=== PATIENT | male | born 1955 | race Caucasian/White ===

== ENCOUNTER 2017-06-01 17:29 | Observation (INO) | payer OTHER ==
[~2017-06-01] VITALS: Ht 182.9 cm; Wt 89.2 kg
--- NOTE | ~2017-06-01 | HEMODYNAMI ---
PATIENT:MARIS BRIDGES MEDICAL RECORD: [id number] : 57 [facility] [place] [facility] AD[facility] DATE: 06/01/17 Generatedon:06/02/201716:23 Patient name: MARIS BRIDGES Patient #: [id number] SSN: : 1955 Date of study: 06/02/2017 Page: Of Hemodynamic Procedure Report Patient Data Patient Demographics Procedure consent was obtained First Name: MARIS Gender: Male Last Name: YULIANA : 1955 Patient #: [id number] Age: 61 year(s) Race: Unknown Additional ID: [id number] Contact details [address]: [address] [place] [address] [employer] State: [place] City: [place] Zip code: [address] Past Medical History Allergies Allergen Reaction Date Comments Reported Other allergy 06/02/2017 Amoxicillin Admission Admission Data Admission Date: 06/01/2017 Admission Time: 19:28 [facility] Results Lab Result Date: 06/02/2017 Lab Result Time: 0:00 Biochemistry Name Units Result Min Max BUN mg/dl 29 --(----)-* 7 18 Creatinine mg/dl 1.2 --(---*)-- 0.6 1.3 CBC Name Units Result Min Max Hemoglobin g/dl 16.8 --(---*)-- 13.5 17.5 Procedure Procedure Types Cath Procedure Diagnostic Procedure C [facility] w/Coronaries Miscellaneous Procedures Moderate Sedation up to 15 minutes Procedure Description Procedure Date Procedure Date: 06/02/2017 Procedure Start Time: 16:05 Procedure End Time: 16:21 Procedure Staff Name Function Vidal Aviles MD Performing Physician Marija Benavides RT Scrub Gabrielle Silver RT Monitor Oscar Batres RN Nurse Procedure Data Cath Procedure Fluoroscopy Diagnostic fluoroscopy Total fluoroscopy Time: 1.9 time: 1.9 min min Diagnostic fluoroscopy Total fluoroscopy dose: 967 dose: 967 mGy mGy Contrast Material Contrast Material Type Amount (ml) Isovue 300 89 Entry Location Entry Primary Successful Side Size Upsize Upsize Entry Closure Spann ccessful Closure Location (Fr) 1 (Fr) 2 (Fr) Remarks Device Remarks Radial Right 6 Fr Mechanical TR Band artery Short Compression Estimated blood loss: 10 ml Diagnostic catheters Device Type Used For End Catheter Placement Terumo 5Fr Keron 110cm Procedure catheter Procedure Complications No complications Procedure Medications Medication Administration Route Dosage Oxygen NC 2 l/min Lidocaine 2% added to field 20 Heparin Flush Bag added to field 2 bags (1000units/500ml NS) 0.9% NaCl I.V. 100 ml/hr Versed I.V. 0.5 mg Fentanyl I.V. 25 mcg Radial Cocktail I.A. 1 syringe (Verapomil 2mg/Nitro 400mcg/Heparin 1500units) Versed I.V. 0.5 mg Fentanyl I.V. 25 mcg Hemodynamics Rest Heart Rate: 83 (bpm) Pressure Samples Time Site Value (mmHg) Purpose Heart Use Rate(bpm) 16:08 LV 150/-11,11 Snapshot 83 16:09 AO 121/80(98) Pullback 85 16:09 LV 139/-8,9 Pullback 85 Gradients Valve Time Site 1 Site 2 Mean SEP/DFP Peak To Heart Use (mmHg) (sec/min) Peak Rate (mmHg) (bpm) Aortic 16:09 LV AO 15 5 18 85 139/-8,9 121/80(98) Calculations Valve P-P Mean Valve Index Valve Source Name Gradient Area Flow (cm2) Aortic 18 15 18 15 Snapshots Pre Cath Intra NCS Post Cath Vital Signs Time Heart Resp SPO2 etCO2 NIBP (mmHg) Rhythm Pain Sedation Rate (ipm) (%) (mmHg) Status Level (bpm) 16:02:22 69 16 95 1.5 125/90(101) NSR 0 (11) 10(A) , No pain 16:06:29 73 15 96 10.6 134/85(100) NSR 0 (11) 10(A) , No pain 16:10:40 86 14 95 31 114/75(95) NSR 0 (11) 9(A) , No pain 16:14:44 81 16 94 30.2 117/78(94) NSR 0 (11) 9(A) , No pain 16:18:50 77 16 94 1.5 118/77(94) NSR 0 (11) 10(A) , No pain Medications Time Medication Route Dose Verified Delivered Reason Notes Effectiveness by by 16:00:40 Oxygen NC 2 l/min Vidal Buffie used for Stefan Batres RN procedure 16:00:52 Lidocaine 2% added 20ml Vidal Vidal for local to vial Stefan Aviles MD anesthetic field 16:01:03 Heparin Flush added 2 bags Vidal Vidal used for Bag to Stefan Aviles MD procedure (1000units/500ml field NS) 16:01:12 0.9% NaCl I.V. 100 Vidal Buffie Per ml/hr Stefan Batres RN physician 16:04:22 Versed I.V. 0.5 mg Vidal Buffie for sedation Stefan Batres RN 16:04:29 Fentanyl I.V. 25 mcg Vidal Buffie for sedation Stefan Batres RN 16:08:27 Radial Cocktail I.A. 1 Vidal Vidal for (Verapomil syringe Stefan Aviles MD vasodilation 2mg/Nitro 400mcg/Heparin 1500units) 16:08:55 Versed I.V. 0.5 mg Vidal Buffie for sedation Stefan Batres RN 16:09:01 Fentanyl I.V. 25 mcg Vidal Buffie for sedation Stefan Batres RN Procedure Log Time Note 15:35:06 Lab Result : BUN 29 mg/dl 15:35:06 Lab Result : Hemoglobin 16.8 g/dl 15:35:06 Lab Result : Creatinine 1.2 mg/dl 15:37:14 Diagnostic Cath status Elective 15:37:16 Marija Benavides RT(R) sent for patient. Start room use. 15:37:17 Time tracking: Regular hours 15:37:22 Plan of Care:Hemodynamics will remain stable., Cardiac rhythm will remain stable., Comfort level will be maintained., Respiratory function will remain adequate., Patient/ family verbilizes understanding of procedure., Procedure tolerated without complication., Recovers from procedure without complications.. 15:47:33 Patient received from Med II to CCL 2 Alert and oriented. Tansferred to table in Supine position. 15:47:35 Warm blankets applied, and connie hugger turned on for patient comfort. 15:47:35 Correct patient and procedure confirmed by team. 15:47:37 Signed procedure consent form obtained from patient. 15:47:47 H&P Date Dictated: 06/01/2017 Within 30 days and on chart.. 15:47:49 Pre-procedure instructions explained to patient. 15:47:51 Family in waiting room. 15:47:55 Patient NPO since Midnight. 15:48:11 Patient allergic to Other allergyAmoxicillin 15:48:21 Is the patient allergic to Iodine/contrast media? No. 15:48:25 Is patient on blood thinner?No 15:48:48 ACC The patient was administered the following blood thiners within the last 24 hours: ACCAspirin 16:00:40 Oxygen 2 l/min NC was administered by Oscar Batres RN; used for procedure; 16:00:52 Lidocaine 2% 20ml vial added to field was administered by Vidal Aviles MD; for local anesthetic; 16:01:03 Heparin Flush Bag (1000units/500ml NS) 2 bags added to field was administered by Vidal Aviles MD; used for procedure; 16:01:12 0.9% NaCl 100 ml/hr I.V. was administered by Oscar Batres RN; Per physician; 16:01:21 Vital chart was started 16:01:47 Patient diabetic? No. 16:01:52 Previous problem with sedation/anesthesia? No ? 16:01:54 Snore? Yes 16:01:56 Sleep apnea? No 16:02:10 Patient pain scale 2/10 ?. 16:02:21 IV patent on arrival in left forearm with 0.9% NaCl at [facility]. 16:02:33 Lab results completed and on chart. 16:02:38 Right Radial & Right Groin area was prepped with chlora-prep and draped in sterile fashion 16:02:46 Alarms reviewed by R. N. 16:02:46 Sharps counted by scrub and verified by R.N. 16:02:48 Physician paged 16:02:49 Physician arrived 16:02:49 --------ALL STOP TIME OUT------ 16:02:50 Final Timeout: patient, procedure, and site verified with staff and physician. All members of the team are in agreement. 16:02:51 Right Radial & Right Groin site verified by team. 16:02:56 Sedation plan: IV Moderate Sedation Versed, Fentanyl 16:03:52 Use device set Radial Dx 16:03:53 Acist Syringe opened to sterile field. 16:03:53 Medline Cath Pack opened to sterile field. 16:03:54 Bag Decanter opened to sterile field. 16:03:54 Terumo 6Fr Slender Glidesheath opened to sterile field. 16:03:55 St Graham 260cm J .035 wire opened to sterile field. 16:03:55 Acist Hand Control opened to sterile field. 16:03:56 Acist Manifold opened to sterile field. 16:03:56 Tegaderm 4 x 4 opened to sterile field. 16:03:56 MBrace Wrist Support opened to sterile field. 16:04:22 Versed 0.5 mg I.V. was administered by Oscar Batres RN; for sedation; 16:04:29 Fentanyl 25 mcg I.V. was administered by Oscar Batres RN; for sedation; 16:05:20 Procedure started. 16:05:20 Full Disclosure recording started 16:05:21 Zero performed for pressure channel P1 16:05:56 Local anesthetic to right radial artery with Lidocaine 2% by Vidal Aviles MD.INITIAL ACCESS ONLY 16:06:08 A 6 Fr Short sheath was inserted into the Right Radial artery 16:06:13 J wire advanced. 16:08:01 A Terumo 5Fr Keron 110cm catheter was advanced over the wire and used for Procedure. 16:08:05 LV angiography performed. 16:08:27 Radial Cocktail (Verapomil 2mg/Nitro 400mcg/Heparin 1500units) 1 syringe I.A. was administered by Vidal Aviles MD; for vasodilation; 16:08:55 Versed 0.5 mg I.V. was administered by Oscar Batres RN; for sedation; 16:09:01 Fentanyl 25 mcg I.V. was administered by Oscar Batres RN; for sedation; 16:09:22 EF : 55 % 16::57 RCA angiography performed. 16:10:35 LCA angiography performed. 16:18:54 Catheter removed. 16:19:07 Terumo TR Band Standard opened to sterile field. 16:19:30 Sheath removed intact; hemostasis achieved with Mechanical Compression to the Right Radial artery. 16:19:33 Procedure ended.(Physican Out) 16:19:46 Fluoroscopy time 01.90 minutes. 16:19:53 Fluoroscopy dose: 967 mGy 16:19:53 Flurop Dose total: 967 16:20:00 Contrast amount:Isovue 300 89ml. 16:20:04 Sharps counted by scrub and verified by R.N. 16:20:08 TR band inflated with 10cc of air. 16:20:11 Insertion/operative site no bleeding no hematoma. 16:20:14 Post Procedure Pulses reassessed and unchanged 16:20:19 Post procedure rhythm: unchanged. 16:20:23 Estimated blood loss: 10 ml 16:20:24 Post procedure instruction explained to patient.Patient verbalizes understanding. 16:20:37 Procedure and supply charges have been captured, reviewed, submitted and are correct. 16:21:02 Procedure Complication : No complications 16:21:04 Vital chart was stopped 16:21:05 See physician's report for complete and final results. 16:21:08 Report given to Med/Surg. 16:21:12 Patient transfered to [facility] with Bed. 16:21:14 Procedure ended. 16:21:14 Full Disclosure recording stopped 16:21:18 End room use (Document Last) Device Usage Item Name Manufacture Quantity Catalog Hospital Part Current Minimal Lot# / Number Charge Number Stock Stock Serial# Code Acist Acist 1 [id number] [id number] [id number] [id number] 20 Syringe Medical [employer] Inc Medline Cardinal 1 [id number] 75749 537894 5 Cath Pack Health Bag Microtek 1 2001S 097807 63549 654904 5 [employer] Terumo 6Fr Terumo 1 [id number] 341828 945807 266122 [address] Graham 1 022551 241996 369943 588790 30 260cm J .035 wire Acist Hand Acist 1 73356 986455 528526 100533 5 Control Medical Systems Inc Acist Acist 1 96489 986388 931448 537143 5 Manifold Medical Systems Inc Tegaderm 4 3M 1 1626W 996517 226009 196050 5 x 4 MBrace Advanced 1 140-0250-00 550244 88227 069042 5 Wrist Vascular Support Dynamics Terumo 5Fr Terumo 1 64-6826 672088 839689 260919 5 Keron 110cm catheter Terumo TR Terumo 1 [id number] 970064 581040 348991 40 Band Standard Signature Audit [place] Stage Time Signature Unsigned Intra-Procedure 06/02/2017 Gabrielle Silver 4:23:43 PM RT(R) Signatures Monitor : Gabrielle Silver Signature : RT Date : Time : [place] [address] [place] [address]
[2017-06-01 17:53] LABS: BASOPHILS 0.1 % (0-2); EOSINOPHILS 0.2 % (0-7); HEMATOCRIT 50.2 % (42.0-54.0); HEMOGLOBIN 16.8 g/dL (13.5-17.5); IMMATURE GRANULOCYTES 0.3 % (0-5); LYMPHOCYTES 7.1 % (15-50); MCH 30.4 pg (26.0-34.0); MCHC 33.5 g/dL (31.0-37.0); MCV 90.8 fL (80.0-100.0); MEAN PLATELET VOLUME 10.8 fL (7.4-10.4); MONOCYTES 8.5 % (2-11); NEUTROPHILS 83.8 % (40-80); PLATELET COUNT 144 10x3/uL (130-400); RBC 5.53 10x6/uL (4.20-6.10); RDW 13.5 % (11.5-14.5); WBC 9.7 10x3/uL (4.8-10.8)
[2017-06-01 18:04] LABS: ALBUMIN 3.7 g/dL (3.4-5.0); ALKALINE PHOSPHATASE 87 U/L (46-116); ALT (SGPT) 39 U/L (10-68); BILIRUBIN - TOTAL 0.92 mg/dL (0.2-1.3); CALC OSMOLALITY 287 mosm/kg (275-300); CALCIUM 8.2 mg/dL (8.5-10.1); CARBON DIOXIDE 28.4 mmol/L (21.0-32.0); CHLORIDE - SERUM 103 mmol/L (98-107); CREATININE - SERUM 1.2 mg/dL (0.6-1.3); GLUCOSE 108 mg/dL (74-106); POTASSIUM - SERUM 3.6 mmol/L (3.5-5.1); PROTEIN - SERUM 7.4 g/dL (6.4-8.2); SODIUM 141 mmol/L (136-145); UREA NITROGEN 29 mg/dL (7-18); eGFR NON AFRICAN AMERICAN 66 mL/min (90-120)
[2017-06-01 18:15] LABS: CKMB 0.7 U/L (0.0-3.6); CREATINE KINASE 133 UL (21-232); TROPONIN-I < 0.017 ng/mL (0.000-0.060)
[2017-06-01 18:38] LABS: MAGNESIUM - SERUM 2.2 mg/dL (1.8-2.4); T4 THYROXINE 7.9 ug/dL (4.7-13.3); THYROID STIMULATING HORMONE 0.83 uIU/mL (0.36-3.74)
[2017-06-01 18:51] LABS: APPEARANCE CLEAR (CLEAR); BILIRUBIN NEGATIVE (NEGATIVE); COLOR YELLOW (YELLOW); GLUCOSE NEGATIVE (NEGATIVE); KETONE NEGATIVE (NEGATIVE); NITRITE NEGATIVE (NEGATIVE); PH 6.5 (5.0-6.0); PROTEIN NEGATIVE (NEGATIVE); SPECIFIC GRAVITY 1.015 (1.005-1.020); UROBILINOGEN NORMAL (NORMAL)
[2017-06-01 18:56] LABS: UDS - AMPHET NEGATIVE QUAL (NEGATIVE); UDS - BARB NEGATIVE QUAL (NEGATIVE); UDS - BENZO NEGATIVE QUAL (NEGATIVE); UDS - COCAINE NEGATIVE QUAL (NEGATIVE); UDS - OPIATE NEGATIVE QUAL (NEGATIVE); UDS - PCP NEGATIVE QUAL (NEGATIVE); UDS - THC POSITIVE QUAL (NEGATIVE)
[2017-06-01 20:00] VITALS: BP 121/78
--- NOTE | 2017-06-01 20:30 | NUR ---
PT ARRIVES VIA STRETCHER ACCOMPANIED BY A AND P TECHNICIAN. PT IS ALERT/ORIENTED X4. SPEAKS IN A SOFT WHISPER. UPON NEURO ASSESSMENT, PT RELATES EXTREMITRIES X4 FEEL "HEAVY". HOWEVER, EQUAL STRENGTH NOTED BILAT. FOLLOWS COMMANDS. TONGUE MIDLINE. SWALLOWING WITHOUT COUGHING OR ASPIRATION NOTED WITH SMALL SIPS OF WATER. PUPILS PERRLA. SISTER IN AT THE BEDSIDE. STATES SPOUSE WILL BE UP HERE TO STAY THE NIGHT. PT DOES C/O HEADACHE. REFUSES TYLENOL. WILL CONT TO MONITOR.
[2017-06-01 21:05] VITALS: BP 121/78; Ht 182.9 cm; Wt 89.2 kg
[2017-06-02] VITALS: BP 104/69
--- NOTE | 2017-06-02 00:15 | NUR ---
NO CHANGES NOTED IN NEURO ASSESSMENT. PT REMAINS WITHOUT NEURO DEFICITS NOTED. FAMILY IN AT BEDSIDE. WILL CONT TO MONITOR.
--- NOTE | 2017-06-02 02:06 | NUR ---
PT RESTING SOUNDLY WITHOUT C/O OR DISTRESS NOTED. NO NEEDS VOICED. WILL CONT TO MONITOR.
[2017-06-02] MEDS ORDERED: HYDROCORTISONE30 G9 TOPICAL (02:10)
[2017-06-02] MEDS ORDERED: LISINOPRIL5 MG PO (02:10)
[2017-06-02] MEDS ORDERED: VIAGRA100 MG PO (02:11)
[2017-06-02] MEDS ORDERED: ZOCOR20 MG PO (02:11)
[2017-06-02 04:00] VITALS: BP 114/69
--- NOTE | 2017-06-02 07:30 | NUR ---
RECEIVED PT IN BED AAOX4 RESP UNLABORED C/O GAMBOA 02/27 EXPLAINED WOULD HAVE TO GET A ORDER NO OTHER NEEDS VOICED AT THIS TIME
[2017-06-02 08:09] LABS: BASOPHILS 0.3 % (0-2); EOSINOPHILS 2.6 % (0-7); HEMOGLOBIN 15.2 g/dL (13.5-17.5); IMMATURE GRANULOCYTES 0.3 % (0-5); MCH 30.1 pg (26.0-34.0); MCV 91.1 fL (80.0-100.0); MEAN PLATELET VOLUME 10.8 fL (7.4-10.4); MONOCYTES 11.6 % (2-11); NEUTROPHILS 72.2 % (40-80); PLATELET COUNT 142 10x3/uL (130-400); RBC 5.05 10x6/uL (4.20-6.10); RDW 13.7 % (11.5-14.5); WBC 7.4 10x3/uL (4.8-10.8)
[2017-06-02 08:17] LABS: CALC OSMOLALITY 282 mosm/kg (275-300); CALCIUM 8.1 mg/dL (8.5-10.1); CARBON DIOXIDE 25.8 mmol/L (21.0-32.0); CHLORIDE - SERUM 106 mmol/L (98-107); GLUCOSE 101 mg/dL (74-106); SODIUM 140 mmol/L (136-145); UREA NITROGEN 24 mg/dL (7-18); eGFR NON AFRICAN AMERICAN 81 mL/min (90-120)
[2017-06-02 08:48] VITALS: BP 116/76
[2017-06-02 12:57] VITALS: BP 117/84
--- NOTE | 2017-06-02 20:30 | NUR ---
4 CC AIR REMOVED FROM TR BAND TO RIGHT WRIST. PT C/O THAT THE TR BAND IS UNCOMFORTABLE. NO BLEEDING NOTED. WILL CONT TO MONITOR.
--- NOTE | 2017-06-02 21:05 | NUR ---
ALL AIR REMOVED FROM TR BAND AND REMOVED THE BAND AT THIS TIME. NO BLEEDING OR HEMATOMA NOTED TO THE SITE. SMALL FOLDED 2X2 PLACED AND SECURED WITH OPSITE. WILL CONT TO MONITOR THE SITE.
[2017-06-02 22:46] VITALS: BP 133/85
--- NOTE | 2017-06-03 01:54 | NUR ---
PT RESTING WELL WITHOUT C/O OR DISTRESS NOTED. NO NEEDS VOICED. WILL CONT TO MONITOR.
[2017-06-03 05:05] VITALS: BP 123/79
--- NOTE | 2017-06-03 07:31 | NUR ---
RECEIVED PT IN BED EYES CLOSED RESP UNLABORED NAD NOTED
[2017-06-03 08:34] VITALS: BP 111/79
[2017-06-03] MEDS ORDERED: ISOSORBIDE MONO30 M1 PO (09:14)
--- NOTE | 2017-06-03 12:00 | NUR ---
REVIEWED DISCHARGE INSTRUCTIONS PT STATES UNDERSTANDING COOPY GIVEN DCD SALINE LOCK TO LAC WITH CATHETER TIP INTACT SITE FREE OF REDNESS AND EDEMA PT DISCHARGED HOME LEFT UNIT IN STABLE CONDITION VIA W/C WITH ALL PERSONAL BELONGINGS
[2017-06-03 12:38] VITALS: BP 124/81
[2017-06-04 10:16] LABS: HEPATITIS C ANTIBODY <0.1 (0.0-0.9)
[2017-06-09] MEDS ORDERED: ASPIRIN EC81 M1 PO (10:34)
== END 2017-06-03 15:07 | disposition home or self-care (01) ==
LOC: D.ER 17:29 → D.M2 19:28 → OBSVTIME 19:28 → D.M2 19:28 → D.SDCHOLD 06-02 16:29 → D.M2 06-02 16:35 → D.SDCHOLD 06-03 14:46 → D.M2 06-03 14:48
PROVIDERS: Emergency Medicine; Internal Medicine Cardiovascular Disease; ADMIT Internal Medicine Cardiovascular Disease
DX: I25.110 Atherosclerotic heart disease of native coronary artery with unstable angina pectoris (principal); I10 Essential (primary) hypertension; E78.5 Hyperlipidemia, unspecified

== ENCOUNTER 2017-06-10 04:50 | Inpatient (IN) | payer OTHER ==
--- NOTE | 2017-06-07 10:37 | HP ---
PATIENT: MARIS BRIDGES MEDICAL RECORD: [id number] ACCOUNT: [id number] LOCATION:[facility] : 57 ADMISSION DATE: 06/10/17 HISTORY AND PHYSICAL EXAMINATION MARIS Aldridge (61yo, M) ID# [id number]. Date/Time06/04/2017 01:55POFHU48/28/195Service Dept.NPP_[facility] ClinicProviderEDARVIND BROWN MDInsuranceMed Primary: [employer] Insurance # : [id number] Policy/Group # : [id number] Employer Name : [employer] Prescription: [employer] - This member could not be found in the payer's files. Please verify coverage and all member demographic information. Chief Complaint Coronary artery disease eval/schedule for CABG Patient's Care Team Primary Care Provider: LILIANA ROSALES MD: [id number] [facility] [facility] [address], [place] [address], , Weigher Packing: SARY AUGUSTE MD Vitals BP:130/80 sitting R arm 06/04/2017 01:51 pmBP Cuff Size:adult 06/04/2017 01:51 pmHR:52,reg 06/04/2017 01:51 pmHt:6 ft 06/04/2017 01:51 pmWt:195 lbs 06/04/2017 01:52 pmNotes:one mild episode of pain intermittently this am. Two weeks ago beganw L shoulder pain, substernal chest pain, some SOB. Went to [employer] and felt very fatigued beyond his norm.Came home early from [place]. Went to the park with his kids and had a syncopal episode.06/04/2017 01:53 pmBMI:26.4 06/04/2017 01:52 pmAllergies Reviewed Allergies AMOXICILLINMedications Reviewed Medications aspirin 81 mg chewable tablet Chew 1 tablet(s) every day by oral route.06/04/17 enteredKathy Wilsonfluocinonide 0.05 % topical solution IBETH TO SCALP BID FOR 2 WEEKS THEN ONLY 2 TO 3 TIMES A WEEK06/03/17 filledsurescriptshydrocortisone 2.5 % topical cream IEBTH TO SCALY AREAS BID FOR 2 WEEKS THEN DECREASE TO 3 TIMES WEEKLY TO FACE ONLY05/29/17 filledsurescriptsisosorbide mononitrate ER 30 mg tablet,extended release 24 hr TK 1 T PO QD06/03/17 filledsurescriptslisinopril 5 mg ekkyyc61/09/17 filledsurescriptssimvastatin 20 mg tablet TK 1 T PO D107/29/16 filledsurescriptsViagra 100 mg tablet TK 1 T PO ONE TIME D107/29/16 filledsurescriptsProblems Reviewed Problems Coronary atherosclerosis - Onset: 06/03/2017 Family History Discussed Family History Mother- History of cardiovascular disease - grandparentUnspecified Relation- Cerebrovascular accident - grandparentFather- Kidney diseaseSocial History Discussed Social History Cardiology Family history of heart disease?: Y Smoking Status: Never smoker HISTORY AND PHYSICAL [id number] MARIS BRIDGES High Cholesterol: Y High blood pressure: Y Exercise level: Moderate Alcohol intake: Moderate Occupation: [employer] Marital status: Surgical History Reviewed Surgical History Cervical laminoplsty 2/> seg - 07/21/1998 - c5-c7 diskectomy and fusion Appendectomy - 07/21/1968 Past Medical History Discussed Past Medical History Hyperlipidemia: Y Hyp ertension: Y Documents for Discussion N/A Screening None recorded. HPI Coronary Artery Disease F/U Reported by patient. Severity: symptoms are worsening; chest discomfort with household activities/yard work Context: non-smoker; using Viagra, Levitra, or Cialis Associated Symptoms: chest pain with exertion; nausea w onset of fatigue last weekend ROS Patient reports chest pain on exertion, arm pain on exertion, and shortness of breath when walking but reports no shortness of breath when lying down, no palpitations, and no known heart murmur. He reports no fever, no night sweats, no significant weight gain, no significant weight loss, and no exercise intolerance. He reports no dry eyes, no irritation, and no vision change. He report s no difficulty hearing and no ear pain. He reports no frequent nosebleeds and no nose/sinus problems. He reports no sore throat, no bleeding gums, no snoring, no dry mouth, no mouth ulcers, no oral abnormalities, and no teeth problems. He reports no jugul a r vein distension and no swollen glands. He reports no cough, no wheezing, no shortness of breath, and no coughing up blood. He reports no abdominal pain, no vomiting, normal appetite, no diarrhea, not vomiting blood, no nausea, and no constipation. He re p orts no incontinence, no difficulty urinating, no hematuria, and no increased frequency. He reports no muscle aches, no muscle weakness, no arthralgias/joint pain, no back pain, and no swelling in the extremities. He reports no abnormal mole, no jaundice, and no rashes. He reports no loss of consciousness, no weakness, no numbness, no seizures, no dizziness, and no headaches. He reports no depression, no sleep disturbances, feeling safe in relationship, and no alcohol abuse. He reports no fatigue. He repor ts no swollen glands and no bruising. He reports no runny nose, no sinus pressure, no itching, no hives, and no frequent sneezing. ROS as noted in the HPI Physical Exam Patient is a 61-year-old male. Constitutional: General Appearance well nourished and developed and healthy-appearing. Level of Distress NAD. Ambulation ambulating normally. HISTORY AND PHYSICAL [id number] MARIS BRIDGES Cardiovascular: Apical Impulse not displaced or no thrill. Heart Auscultation normal s1 and s2; no murmurs, rubs, or gallops; and RRR. Arterial Pulses no abdominal aor ta bruits, femoral bruits, or popliteal bruits and 2+ bilateral, carotid 2+ bilateral, femoral 2+ bilateral, popliteal 2+ bilateral, and dorsalis pedis 2+ bilateral. Edema no edema or varicosities. Lungs: Repiratory Effort no dyspnea. Percussion no hyperr esonance or dullness or flatness. Auscultation no wheezing, rhonchi, or rales / crackles and breathing sounds normal, good air movement, and CTA except as noted. Abdomen: Bowl Sounds normal. Inspection and Palpation no tenderness, guarding, masses, or claudy ound tenderness and soft and non-distended. Liver non-tender and no hepatomegaly. Spleen non-tender and no splenomegaly. Hernia none palpable. Musculoskeletal System: Gait And Stance normal gait and stance. Digits and Nails normal nails and no cyanosis. Neurologic: Cranial Nerves grossly intact. Reflexes DTRs 2+ bilaterally throughout. Sensation grossly intact. Lymph Nodes: Lymph Nodes no cervical LAD, supraclavicular LAD, axillary LAD, or inguinal LAD. Eyes: Lids and Conjunctivae no discharge or pallor and non-injected. Pupils PERRLA. Cornea grossly intact. EOM EOMI. Lens clear. Sclerae non-icteric. Neck: Neck no masses, enlarged lymph nodes, or carotid bruits and supple and trachea midline. Thyroid no enlargement or nodules and non-tender. Skin: Inspection and Palpation no rash, lesions, ulcers, jaundice, or abnormal nevi. Assessment / Plan occlusive coronary artery disease with angina pectoris 1. Coronary atherosclerosis I25.720: Atherosclerosis of autologous artery coronary artery bypass graft( s) with unstable angina pectoris Discussion Notes I have discussed the patient's disease process with him in detail as well as the alternative methods of treatment. We discussed coronary artery bypass and the expected benefits and risk which included blee ding, infection, stroke, , and the imponderables. He understands all of the above and wishes to proceed with planned surgery. CHRISTA BROWN MD at 1037 CC: [id number] DICTATION DATE: 06/04/17 1300 WARP TENSION TESTER: ARNALDO 06/05/17 1045 PRE IN [facility] [address] [place] [address]
[2017-06-09 10:25] LABS: BASOPHILS 0.7 % (0-2); EOSINOPHILS 4.3 % (0-7); HEMOGLOBIN 16.4 g/dL (13.5-17.5); IMMATURE GRANULOCYTES 0.4 % (0-5); LYMPHOCYTES 17.4 % (15-50); MCH 30.4 pg (26.0-34.0); MCHC 33.5 g/dL (31.0-37.0); MCV 90.9 fL (80.0-100.0); MEAN PLATELET VOLUME 10.7 fL (7.4-10.4); MONOCYTES 8.4 % (2-11); NEUTROPHILS 68.8 % (40-80); RBC 5.39 10x6/uL (4.20-6.10); RDW 13.3 % (11.5-14.5); WBC 7.3 10x3/uL (4.8-10.8)
[2017-06-09 10:31] LABS: INR 1.1 (0.85-1.17); PROTIME 14.1 SECONDS (11.6-15.0)
[2017-06-09 10:33] LABS: HEMOGLOBIN A1C 5.8 % (4.8-6.0)
[2017-06-09 10:35] LABS: PLATELET COUNT 206 10x3/uL (130-400)
[2017-06-09 10:36] LABS: APPEARANCE CLEAR (CLEAR); BILIRUBIN NEGATIVE (NEGATIVE); COLOR YELLOW (YELLOW); GLUCOSE NEGATIVE (NEGATIVE); KETONE NEGATIVE (NEGATIVE); NITRITE NEGATIVE (NEGATIVE); PROTEIN NEGATIVE (NEGATIVE)
[2017-06-09 10:51] LABS: ALBUMIN 3.6 g/dL (3.4-5.0); ANION GAP 9.8 mmol/L (8-16); BILIRUBIN - TOTAL 0.36 mg/dL (0.2-1.3); CALCIUM 8.3 mg/dL (8.5-10.1); CARBON DIOXIDE 30.5 mmol/L (21.0-32.0); CREATININE - SERUM 1.2 mg/dL (0.6-1.3); PHOSPHOROUS 2.8 mg/dL (2.5-4.9); POTASSIUM - SERUM 4.3 mmol/L (3.5-5.1); PROTEIN - SERUM 7.3 g/dL (6.4-8.2); T4 THYROXIN - FREE 1.09 ng/dL (0.76-1.46); THYROID STIMULATING HORMONE 1.5 uIU/mL (0.36-3.74); URIC ACID 5.1 mg/dL (2.6-7.2)
[2017-06-09 11:48] LABS: COLD SCREEN @ 4 DEGREES 2+ (NEGATIVE); COLD SCREEN ROOM TEMP NEGATIVE (NEGATIVE)
[~2017-06-10] VITALS: Ht 182.9 cm; Wt 88.7 kg
[2017-06-10] VITALS (36 sets, daily range): BP systolic 99–135; BP diastolic 46–87; BMI 26.5
[~2017-06-10 04:50] MED LIST: ASPIRIN EC81 M1 PO; HYDROCORTISONE30 G9 TOPICAL; ISOSORBIDE MONO30 M1 PO; LISINOPRIL5 MG PO; VIAGRA100 MG PO; ZOCOR20 MG PO
[2017-06-10 07:36] LABS: PLT FUNCT.(P2Y12) PLAVIX 247 PRU (194-418)
[2017-06-10 14:46] LABS: MCH 29.8 pg (26.0-34.0); MCHC 33.1 g/dL (31.0-37.0); MCV 90.2 fL (80.0-100.0); MEAN PLATELET VOLUME 10.1 fL (7.4-10.4)
[2017-06-10 14:51] LABS: HEMOGLOBIN 11.9 g/dL (13.5-17.5); RBC 3.99 10x6/uL (4.20-6.10); WBC 13.4 10x3/uL (4.8-10.8)
[2017-06-10 15:00] LABS: APTT 35.6 SECONDS (22.8-39.4); INR 1.44 (0.85-1.17); PROTIME 17.5 SECONDS (11.6-15.0)
[2017-06-10 15:07] LABS: CALC OSMOLALITY 296 mosm/kg (275-300); CARBON DIOXIDE 26.1 mmol/L (21.0-32.0); CHLORIDE - SERUM 108 mmol/L (98-107); CREATININE - SERUM 0.9 mg/dL (0.6-1.3); GLUCOSE 140 mg/dL (74-106); POTASSIUM - SERUM 4.1 mmol/L (3.5-5.1); SODIUM 147 mmol/L (136-145); UREA NITROGEN 20 mg/dL (7-18); eGFR NON AFRICAN AMERICAN > 90 mL/min (90-120)
[2017-06-10 15:27] LABS: CALCIUM 6.8 mg/dL (8.5-10.1)
--- NOTE | 2017-06-10 16:45 | NUR ---
OGT NOT IN PLACE PER AIR BOLUS, NO CONTENT NOTED IN TUBING. PULLED AND REPLACED OGT WITH GOOD GASTRIC GURGLING AUSC.
--- NOTE | 2017-06-10 17:57 | NUR ---
dr. wills in to see patient new orders received.
--- NOTE | 2017-06-10 19:30 | NUR ---
REPORT RECIEVED ASSESSMENT COMPLETED. PT EXTUBATED. ON 5 L NC WITH SPO2 IN THE 90'S. CONTROL CLERK AUDITING PUMP SET UP AND EDUCATED ON HOW TO USE IT. CHEST TUBE X 3 NOTED TO 20 CM SUCTION WITH NO LEAKS NOTED. SWAN AT THE ESTIMATED MARINA OF 49 CM. TPM ATRIALY SENSING AND VENTRICULARLY PACING. SEE FLOW SHEET FOR FURTHER DETAILS. PT POSITIONED FOR COMFORT WILL CONTINUE 1 ON 1 NURSING CARE.
--- NOTE | 2017-06-10 21:00 | NUR ---
PT TEMP STARTING TO INCREASE PRN MEDS GIVEN PER ORDER. PT HANDLING SMALL SIPS OF WATER WITH NO DISTRESS. WILL CONTINUE 1 ON 1 NURSING CARE.
--- NOTE | 2017-06-10 23:00 | NUR ---
REASSESSMENT COMPLETED. NO CHANGES AT THIS TIME. SEE FLOW SHEET FOR DETAILS. PT RESTING WITH NO SIGNS OF DISTRESS. WILL CONTINUE 1 ON 1 NURSING CARE.
[2017-06-11] VITALS (96 sets, daily range): BP systolic 97–148; BP diastolic 42–76; Ht 182.9 cm; Wt 88.7 kg
--- NOTE | 2017-06-11 01:00 | NUR ---
PT RESTING WITH NO SIGNS OF DISTRESS. WILL CONTINUE TO TITRATE DOPAMINE. WILL CONTINUE 1 ON 1 NURSING CARE.
--- NOTE | 2017-06-11 03:00 | NUR ---
REASSESSMENT COMPLETED AT THIS TIME. NO ACUTE CHANGES. SEE FLOW SHEET FOR FURTHER DETAILS. PT HANDLING WATER WELL. WILL CONTINUE TITRATING DOPAMINE. VSS. WILL CONTINUE 1 ON 1 NURSING CARE.
--- NOTE | 2017-06-11 05:00 | NUR ---
RIGHT LEG DRESSING CHANGED PER ORDER. LINENS CHANGED AND CLORAHEX BATH GIVEN. PT HAS HAD SOME NAUSEA TREATED WITH PRN MEDS. PT POSITIONED FOR COMFORT WILL CONTINUE 1 ON 1 NURSING CARE.
[2017-06-11 06:59] LABS: RDW 13.6 % (11.5-14.5)
[2017-06-11 07:10] LABS: ALBUMIN 3.8 g/dL (3.4-5.0); ALKALINE PHOSPHATASE 30 U/L (46-116); BILIRUBIN - TOTAL 0.91 mg/dL (0.2-1.3); CALC OSMOLALITY 285 mosm/kg (275-300); CALCIUM 7.8 mg/dL (8.5-10.1); CARBON DIOXIDE 25.9 mmol/L (21.0-32.0); CHLORIDE - SERUM 107 mmol/L (98-107); CREATININE - SERUM 0.9 mg/dL (0.6-1.3); GLUCOSE 115 mg/dL (74-106); POTASSIUM - SERUM 4.3 mmol/L (3.5-5.1); PROTEIN - SERUM 5.8 g/dL (6.4-8.2); SODIUM 142 mmol/L (136-145); UREA NITROGEN 17 mg/dL (7-18); eGFR NON AFRICAN AMERICAN > 90 mL/min (90-120)
[2017-06-11 07:11] LABS: ALT (SGPT) 27 U/L (10-68)
[2017-06-11 07:41] LABS: HEMATOCRIT 29.5 % (42.0-54.0); MCH 29.2 pg (26.0-34.0); MCHC 32.2 g/dL (31.0-37.0); MCV 90.8 fL (80.0-100.0); MEAN PLATELET VOLUME 10.7 fL (7.4-10.4); RBC 3.25 10x6/uL (4.20-6.10); WBC 11.9 10x3/uL (4.8-10.8)
[2017-06-11 07:44] LABS: HEMOGLOBIN 9.5 g/dL (13.5-17.5)
--- NOTE | 2017-06-11 07:55 | NUR ---
SHIFT REPORT RECEIVED. ASSUMED CARE OF PATIENT. PT RESTING WITH EYES CLOSED. ANSWERS APPROPRIATELY WHEN QUESTIONED. ASSESSMENT COMPLETED. INVASIVE MONITORING LINES ZEROED. CHEST TUBES X3, NO AIRLEAK NOTED. MINIMAL OUTPUT OVERNIGHT.URINE OUTPUT CLEAR, ROBLES YELLOW. TEMP 37.7. PT HAS LEFT SUBCLAVIAN CENTRAL LINE, RIGHT IJ SWAN AND RIGHT RADIAL ART LINE. ON 5L NC. RIGHT LEG HARVEST SITES WITH CESAR DRAIN X2, BLOODY DRAINAGE NOTED, BULBS COMPRESSED.
--- NOTE | 2017-06-11 08:41 | NUR ---
PT INSTRUCTED TO DEEP BREATHE AND COUGH. INCENTIVE SPIROMETRY PERFOMED. 750 REACHED. CALLED TO CHECK ON PATIENT. PT SPOKE WITH HER.
--- NOTE | 2017-06-11 11:27 | NUR ---
REASSESSMENT COMPLETE. PT PROVIDED WITH WATER REQUESTED. CURRENTLY RESTING WITH EYES CLOSED.
--- NOTE | 2017-06-11 12:22 | NUR ---
PT PROVIDED WITH CLEAR LIQUID DIET. DENIES NAUSEA. ATE JELLO. ASKED FOR COFFEE; PROVIDED. FAMILY AT BEDSIDE AT THIS TIME. PT C/O DRYNESS IN NOSE. HUMIDITY PROVIDED TO O2 TUBING.
--- NOTE | 2017-06-11 12:30 | NUR ---
* Is the patient Alert and Oriented? Yes 0 * How many steps to enter\exit or inside your home? 0 0 * PCP Dr. Vivas 0 * Pharmacy [facility] on [address] 0 * Preadmission Environment Home with Family 0 * ADLs Independent 0 * List name and contact numbers for known caregivers / representatives who currently or will assist patient after discharge: Spouse - Nova [phone] 0 * Additional services required to return to the preadmission environment? No 0 * Can the patient safely return to the preadmission environment? Yes 0 * Has this patient been hospitalized within the prior 30 days at any hospital? No Patient Name: MARIS BRIDGES Admission Status: Elective Accout number: [id number] Admission Date: 06-10-2017 : 1955 Admission Diagnosis: Attending: CHRISTA BROWN Current LOS: 1 Anticipated DC Date: 06-17-2017 Planned Disposition: Home Primary Insurance: [facility] Discharge Planning Comments: Patient sleeping after receiving pain medication. CM spoke with spouse, Nova, via telephone. She reports patient lives at home with her and their 2 children, ages 2 & 4. 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 At ne, he will return home with his family. No needs identified or verbalized at this time. CM will follow & assist with any DC needs. Atomic Fuel Assembler: Latasha Jimenez
--- NOTE | 2017-06-11 13:27 | NUR ---
DELIVERY OF MICHELLE BEAR AND TREATS GIVEN TO AT BEDSIDE. PT TOLERATING LIQUIDS AND JELLO.
--- NOTE | 2017-06-11 16:15 | NUR ---
CENTRAL LINE DRESSINGS CHANGED PER PROTOCOL TO RIJ SWAN, LEFT SUBCLAVIAN AND RIGHT RADIAL ART LINES. DRESSING TO CHEST TUBES AND PACEMAKER CHANGED PER ORDER. ALL SITES INITIALED AND DATED.
--- NOTE | 2017-06-11 16:32 | NUR ---
AT BEDSIDE. PT AWAKE, CONVERSANT.
--- NOTE | 2017-06-11 17:14 | NUR ---
PT ATE 75% DINNER. NO NAUSEA. RESTING QUIETLY AT THIS TIME. NO LONGER AT BEDSIDE.
--- NOTE | 2017-06-11 18:40 | NUR ---
ORAL CARE WITH PERIDEX PROVIDED
--- NOTE | 2017-06-11 19:00 | NUR ---
REPORT RECIEVED. ASSESSMENT COMPLETE PER FLOW SHEET. VSS REPOSITIONED UP IN BE ON R SIDE. COUGH DEEP BREATHE ENCOURAGED I/S ENCOURAGED GOAL 1000 MET. DENIES NEEDS.WILL CONTINUE TOMONITOR
--- NOTE | 2017-06-11 21:13 | NUR ---
PRN TORODOL ADM FOR UNRELIEVED PAIN BY CONTRACT FORESTER DENIES FURTHER NEEDS. WILL CONTINUE TO MONITOR
--- NOTE | 2017-06-11 21:20 | NUR ---
FAMILY CALLED GIVEN LEISAATE.
--- NOTE | 2017-06-11 21:40 | NUR ---
2100 MEDS ADM WITH NO DIFFICULTY. DENIES NEEDS. VSS
--- NOTE | 2017-06-11 22:10 | NUR ---
FAMILY CALLED. GIVEN UPDATE.
--- NOTE | 2017-06-11 23:10 | NUR ---
STATES NAUSEOUS GIVEN PRN ZOFRAN STATES RELIEFE
--- NOTE | 2017-06-11 23:17 | NUR ---
REASSESSMENT COMPLETE PER FLOW SHEET. VSS NO NEW CHANGES. WILL CONTINUE TO MONITOR
[2017-06-12] VITALS (55 sets, daily range): BP systolic 91–133; BP diastolic 45–81
--- NOTE | 2017-06-12 03:13 | NUR ---
REASSESSMENT COMPLETE PER FLOW SHEET. VSS NO NEW CHANGES WILL CONTINUE TO MONITOR
[2017-06-12 06:43] LABS: HEMATOCRIT 29.7 % (42.0-54.0); HEMOGLOBIN 9.6 g/dL (13.5-17.5); MCHC 32.3 g/dL (31.0-37.0); MCV 92.8 fL (80.0-100.0); MEAN PLATELET VOLUME 10.8 fL (7.4-10.4); RBC 3.2 10x6/uL (4.20-6.10); RDW 13.6 % (11.5-14.5); WBC 11.8 10x3/uL (4.8-10.8)
[2017-06-12 07:07] LABS: ALBUMIN 3.2 g/dL (3.4-5.0); ANION GAP 11.3 mmol/L (8-16); BILIRUBIN - TOTAL 0.8 mg/dL (0.2-1.3); CARBON DIOXIDE 28.9 mmol/L (21.0-32.0); CREATININE - SERUM 1.1 mg/dL (0.6-1.3); POTASSIUM - SERUM 4.2 mmol/L (3.5-5.1); PROTEIN - SERUM 5.5 g/dL (6.4-8.2)
--- NOTE | 2017-06-12 07:30 | NUR ---
PT WAS GETTING BED BATH WHEN NURSE ARRIVED. ALL NEW LINENS PROVIDED. PT REPOSITIONED FOR COMFORT. REPORT RECEIVED. ASSESSMENT COMPLETE. SEE FLOWSHEET FOR DETAILS. RESPIRATORY TREATMENT COMPLETE AND INCENTIVE SPIROMETRY PERFORMED. [id number]. ICE WATER PROVIDED REQUESTED. DENIES ANY OTHER NEEDS.
--- NOTE | 2017-06-12 09:49 | NUR ---
PT RESTING QUIETLY ON RIGHT SIDE. SHADE PULLED TO GET SUN OUT OF EYES. VSS.
--- NOTE | 2017-06-12 10:30 | NUR ---
MORNMING MEDICATIONS GIVEN. PT SITTING UP IN BED AT THIS TIME. TELEVISION ON.
--- NOTE | 2017-06-12 11:08 | NUR ---
PT REPOSITIONED TO LEFT SIDE FOR COMFORT.
--- NOTE | 2017-06-12 12:37 | OP ---
PATIENT NAME: MARIS BRIDGES MEDICAL RECORD: [id number] :57 LOCATION:[facility] D.CV05 ADMISSION DATE:06/10/17 SURGEON: CHRISTA MIRANDA MD DATE OF OPERATION: 06/10/2017 SURGEON: Christa Miranda MD ANESTHESIA: General endotracheal, Dr. Pantoja. OPERATION PERFORMED: Coronary artery bypass utilizing left internal thoracic for left anterior descending, reverse saphenous vein segment, sequential first diagonal, sequential second diagonal and reverse saphenous vein segment to the obtuse marginal coronary artery. PREOPERATIVE DIAGNOSIS: Atherosclerosis coronary arteries with angina. POSTOPERATIVE DIAGNOSIS: Atherosclerosis coronary arteries with angina. INDICATION FOR OPERATION: Angina pectoris. FINDINGS OF THE OPERATION: The left internal thoracic was an excellent conduit for grafting as was the greater saphenous vein from the right thigh. The target vessels were of good quality and caliber, although there was diffuse disease in the diagonal coronary arteries. ESTIMATED BLOOD LOSS: Cell Saver was used. DESCRIPTION OF PROCEDURE: After informed consent, adequate preoperative medication and evaluation, the patient was brought to the operating room, placed on the table in the supine position. After induction of general endotracheal anesthesia and application of appropriate monitoring devices, the chest, neck, abdomen, and both legs were prepped and draped in a sterile field, utilizing Betadine scrub, alcohol, and Betadine solution. Betadine-impregnated drape was also used. Saphenous vein was harvested from right thigh and prepared for reverse saphenous vein grafting. The leg was closed over drains utilizing 3-0 Vicryl and skin aiden. A median sternotomy incision was used and dissection carried down the fascia. Hemostasis maintained with electrocautery. The sternum was divided. Innominate vein was identified and protected. Left internal thoracic was taken down and prepared for grafting. The patient was given a calculated dose of heparin, cannulated in a standard fashion utilizing one aortic, one two-stage cannula in the atrium and inferior vena cava. The patient was placed on cardiopulmonary bypass, cooled to 32 degrees centigrade. A cross clamp was placed just proximal to the aortic cannula. The patient was given cardioplegic solution through the aortic root. The patient was given a cold induction and cold maintenance. The patient was given cold intermittent cardioplegic solution throughout the procedure through the grafts, through the root or a combination of both. The first vessel to be grafted was the obtuse marginal. It was grafted end-to-side utilizing a running 7-0 Prolene suture. The grafts were measured back to the aorta and a proximal anastomosis fashioned utilizing running 6-0 Prolene suture. Next, the first diagonal was sutured [id number] to the vein graft utilizing a running 7-0 Prolene suture. The distal end of the graft was then sutured to the second diagonal end-to-side utilizing a running 7-0 Prolene suture. Proximal end of the graft was then anastomosed to the aorta end-to-side utilizing a running 6-0 Prolene suture. Next, left internal thoracic was brought through the hole in pericardium, OPERATIVE REPORT [id number] MARIS BRIDGES sutured left anterior descending end-to-side utilizing a running 8-0 Prolene suture. Pedicle was attached to epicardium with 6-0 Prolene suture. All maneuvers to remove trapped air were performed. The patient was given warm cardioplegic reperfusion and controlled reperfusion. The patient rewarmed to 37 degrees centigrade. Two atrial and 2 ventricular pacing wires were placed on the heart and brought out through the epigastric area. The patient was weaned from cardiopulmonary bypass. After being stable off bypass, he was given calculated dose of protamine to reverse the heparin. Hemostasis was achieved. A #40 right angle and #36 chest tubes were brought in through the epigastric area and placed in mediastinum. A separate left pleural tube was connected to waterseal and suction. Chest was again irrigated. Instrument count and sponge count were correct times 2. Chest was closed in layers utilizing #7 wire on the sternum, #2 Vicryl on linea alba and pectoralis fascia. Subcutaneous tissue was approximated with 3-0 Vicryl. Skin approximated with 3-0 subcuticular Vicryl. Sterile dressings were applied. The patient tolerated the procedure well and was transferred to the CV ICU in stable condition. TRANSINT:[id number] Voice Confirmation ID: [id number] DOCUMENT ID: [id number] CHRISTA MIRANDA MD at 1237 CC: [id number] DICTATION DATE: 06/10/17 1530 HOT CELL TECHNICIAN: 06/10/17 1556 [place] [address]
--- NOTE | 2017-06-12 15:15 | NUR ---
PT UP IN CHAIR. ASSISTED UP TO TOILET. JORGE ASSIST FOR LINES NEEDED ONLY.
--- NOTE | 2017-06-12 16:35 | NUR ---
AT BEDSIDE AT THIS TIME. PT UP IN CHAIR. DENIES NEEDS.
--- NOTE | 2017-06-12 17:49 | NUR ---
PT ASSISTED UP TO TOILET. THOUGHT NEEDED TO HAVE BM. ONLY. GAS. PT REQUESTED TO GO BACK TO THE BED. UPPER DRESSINGS OF RIGHT LEG SATURATED. REMOVED AND FRESH GAUZE DRESSING APPLIED AND HELD WITH SPANDAGE INSTEAD OF TAPE DUE TO IRRITATION OF SKIN.
--- NOTE | 2017-06-12 18:09 | NUR ---
ORAL CREA PERFORMED WITH PERIDEX ORDERED
--- NOTE | 2017-06-12 18:42 | NUR ---
PT REPOSITIONED IN BED FOR COMFORT REQUESTED. PT FACE FLUSHED. TEMPERATURE TAKEN. 98.5 ORAL.
--- NOTE | 2017-06-12 19:30 | NUR ---
REPORT RECVD. CARE ASSUMED. INITIAL ASSMNT COMPLETED. SEE FLOWSHEET FOR ALL FINDINGS. AWAKE AND AOX4. RESP UNLABORED. LUNGS CTA. OCC PROD COUGH. GOOD EFFFORT WITH INCENTIVE. ST ON THE MONITOR,. TRMP PM INTACT T VVI 50. SENSING ONLY. PULSES PALP. TEDS AND SCDS IN USE. AFEBRILE. ABD DISTENDED. BS HYPO. PASSING FLATUS. VOIDING NO DIFF. GRIPPER ATTACHER IN USE FOR PAIN CONTROL. HOB UP. C/L IN REACH. CONT CURRENT POC.
--- NOTE | 2017-06-12 21:30 | NUR ---
HS MEDS GIVEN. UP TO BR WITH MINIMAL ASSIST. VOIDING NO DIFF. PASSING FLATUS. BACK TO BED NO DIFF. VSS. ST ON THE MONITOR. PROSTHODONTIST NORPHINE IN USE. HOB UP. C/L IN REACH. CONT CURRENT POC.
--- NOTE | 2017-06-12 23:30 | NUR ---
REASSESSMENT COMPLETED. SEE FLOWSHEET FOR ALL FINDINGS. RESTFUL. RESP UNLABORED. LUNGS CTA. OCC PROD COUGH. GOOD EFFFORT WITH INCENTIVE. ST ON THE MONITOR,. TRMP PM INTACT T VVI 50. SENSI ONLY. PULSES PALP. TEDS AND SCDS IN USE. AFEBRILE. ABD DISTENDED. BS HYPO. PASSING FLATUS. VOIDING NO DIFF. FENCE POST DRIVER IN USE FOR PAIN CONTROL. HOB UP. C/L IN REACH. CONT CURRENT POC.
[2017-06-13] VITALS (27 sets, daily range): BP systolic 94–120; BP diastolic 64–77
--- NOTE | 2017-06-13 01:00 | NUR ---
UP TO BR WITH MINIMAL ASSIST. VOIDING NO DIFF. PASSING FLATUS. BACK TO BED NO DIFF. VSS. ST ON THE MONITOR. PLUMBING DESIGNER NORPHINE IN USE. HOB UP. C/L IN REACH. CONT CURRENT POC.
--- NOTE | 2017-06-13 03:15 | NUR ---
REASSESSMENT COMPLETED. SEE FLOWSHEET FOR ALL FINDINGS. RESTFUL. RESP UNLABORED. LUNGS CTA. OCC PROD COUGH. GOOD EFFFORT WITH INCENTIVE. ST ON THE MONITOR,. TRMP PM INTACT T VVI 50. SEN ONLY. PULSES PALP. TEDS AND SCDS IN USE. AFEBRILE. ABD DISTENDED. BS HYPO. PASSING FLATUS. VOIDING NO DIFF. CAMPUS CHAPLAIN IN USE FOR PAIN CONTROL. HOB UP. C/L IN REACH. CONT CURRENT POC.
--- NOTE | 2017-06-13 05:24 | NUR ---
UP TO W/C FOR CHEST XRAU NO DIFF. ST ON THE MONITOR. UP IN CHAIR AT BEDSIDE. NO NEEDS VOICED. CONT CURRENT POC.
[2017-06-13 06:21] LABS: HEMATOCRIT 26.3 % (42.0-54.0); HEMOGLOBIN 8.4 g/dL (13.5-17.5); MCH 29.4 pg (26.0-34.0); MCHC 31.9 g/dL (31.0-37.0); MEAN PLATELET VOLUME 10.2 fL (7.4-10.4); RBC 2.86 10x6/uL (4.20-6.10); RDW 13.3 % (11.5-14.5); WBC 9.5 10x3/uL (4.8-10.8)
--- NOTE | 2017-06-13 06:29 | NUR ---
BACK TO RADIOLOGY VIA W/C
[2017-06-13 07:07] LABS: ALBUMIN 2.4 g/dL (3.4-5.0); ALKALINE PHOSPHATASE 34 U/L (46-116); CARBON DIOXIDE 22.5 mmol/L (21.0-32.0); CHLORIDE - SERUM 110 mmol/L (98-107); GLUCOSE 97 mg/dL (74-106); PROTEIN - SERUM 4.8 g/dL (6.4-8.2); SODIUM 142 mmol/L (136-145)
[2017-06-13 07:11] LABS: ALT (SGPT) 23 U/L (10-68); CALC OSMOLALITY 283 mosm/kg (275-300); CREATININE - SERUM 0.7 mg/dL (0.6-1.3); POTASSIUM - SERUM 3.2 mmol/L (3.5-5.1); UREA NITROGEN 16 mg/dL (7-18); eGFR NON AFRICAN AMERICAN > 90 mL/min (90-120)
[2017-06-13 07:12] LABS: CALCIUM 6.8 mg/dL (8.5-10.1)
--- NOTE | 2017-06-13 07:16 | NUR ---
K+ LEVEL TREATED PER SLIDING SCALE.
--- NOTE | 2017-06-13 08:31 | NUR ---
PT AMBULATING WITH PHYSICAL THERAPY. TOLERATING WELL. NO S/S OF RESP DISTRESS NOTED.
--- NOTE | 2017-06-13 08:46 | NUR ---
NUTRITION F/U CHART REVIEWED. NURSING REPORTS PT WITH GOOD PO INTAKE AHA DIET. WILL CONTINUE TO PROVIDE DIET, MONITOR PO INTAKE. RD FOLLOWING
--- NOTE | 2017-06-13 11:20 | NUR ---
NO CHANGES NOTED.
--- NOTE | 2017-06-13 14:30 | NUR ---
PT HAD COMPLETE BATH AND LINEN CHANGE. TOLERATED WELL. PT AMBULATED APPOX 1000FT INDEPENDENTLY. PT'S O2 SAT 89 ON ROOM AIR ONCE HE WAS BACK INTO BED. O2 AT 1L NC. O2 SAT UP TO 95%. STRONG COUGH NOTED.
--- NOTE | 2017-06-13 17:20 | NUR ---
PT REFUSED SUPPER TRAY. C/O HICCUPS. IN BED RESTING AT THIS TIME. CALL LIGHT WITHIN REACH.
--- NOTE | 2017-06-13 18:41 | NUR ---
ORAL CARE PERFORMED WITH PERIDEX ORDERED
--- NOTE | 2017-06-13 19:30 | NUR ---
REPORT RECVD. CARE ASSUMED. INITIAL ASSMNT COMPLETED. SEE FLOWSHEET FOR ALL FINDINGS. AWAKE AND AOX4. RESP UNLABORED. LUNGS CTA. OCC PROD COUGH. GOOD EFFFORT WITH INCENTIVE. ST ON THE MONITOR,. TEMP PM INTACT @ VVI 50. SENSING ONLY. PULSES PALP. TEDS AND SCDS IN USE. AFEBRILE. ABD DISTENDED. BS HYPO. PASSING FLATUS. VOIDING NO DIFF. DENIES DISCOMFORT. UP AD BLANK. IN CHAIR AT BEDSIDE. C/L IN REACH. CONT CURRENT POC.
--- NOTE | 2017-06-13 21:00 | NUR ---
HS MEDS GIVEN. PRN PERCOCET PROVIDED FOR PAIN CONTROL. UP AD BLANK WITH BRP. VSS. TEMP PM INTACT. RESTING IN BED WITH NO DISTRESS. C/L IN REACH. CONT CURRENT POC.
--- NOTE | 2017-06-13 23:30 | NUR ---
REASSESSMENT COMPLETED. SEE FLOWSHEET FOR ALL FINDINGS. AWAKE AND AOX4. RESP UNLABORED. LUNGS CTA. OCC PROD COUGH. GOOD EFFFORT WITH INCENTIVE. ST ON THE MONITOR,. TEMP PM INTACT @ VVI 50. SENSING ONLY. PULSES PALP. TEDS AND SCDS IN USE. AFEBRILE. ABD DISTENDED. BS HYPO. PASSING FLATUS. VOIDING NO DIFF. DENIES DISCOMFORT. PRM PERCOCET EFFECTIVE. C/L IN REACH. CONT CURRENT POC.
[2017-06-14] VITALS (26 sets, daily range): BP systolic 91–126; BP diastolic 56–96
--- NOTE | 2017-06-14 00:50 | NUR ---
PRN PERCOCET REQUESTED FOR INCREASED DISCOMFORT WITH HICCUPS. IN BED, VSS. UP AD BLANK IN ROOM WITH BRP. HOB UP. C/L IN REACH. CONT POC.
--- NOTE | 2017-06-14 05:15 | NUR ---
UP AD BLANK WITH BRP. VSS. DENIES NEEDS. C/L IN REACH. CONT CURRENT POC.
[2017-06-14 06:29] LABS: HEMATOCRIT 29.7 % (42.0-54.0); HEMOGLOBIN 9.7 g/dL (13.5-17.5); MCH 29.8 pg (26.0-34.0); MCHC 32.7 g/dL (31.0-37.0); MCV 91.1 fL (80.0-100.0); MEAN PLATELET VOLUME 10.6 fL (7.4-10.4); RBC 3.26 10x6/uL (4.20-6.10); RDW 13.3 % (11.5-14.5); WBC 9.8 10x3/uL (4.8-10.8)
[2017-06-14 06:50] LABS: ALBUMIN 2.9 g/dL (3.4-5.0); ALKALINE PHOSPHATASE 44 U/L (46-116); ALT (SGPT) 28 U/L (10-68); BILIRUBIN - TOTAL 0.63 mg/dL (0.2-1.3); CALCIUM 7.9 mg/dL (8.5-10.1); CHLORIDE - SERUM 102 mmol/L (98-107); GLUCOSE 130 mg/dL (74-106); POTASSIUM - SERUM 3.4 mmol/L (3.5-5.1); SODIUM 137 mmol/L (136-145)
[2017-06-14 06:51] LABS: CALC OSMOLALITY 278 mosm/kg (275-300); CARBON DIOXIDE 28.7 mmol/L (21.0-32.0); PROTEIN - SERUM 6.1 g/dL (6.4-8.2); UREA NITROGEN 21 mg/dL (7-18); eGFR NON AFRICAN AMERICAN 81 mL/min (90-120)
--- NOTE | 2017-06-14 07:27 | NUR ---
ORAL CARE DONE WITH PERIDEX
--- NOTE | 2017-06-14 18:09 | NUR ---
ORAL CARE PERFORMED WITH PERIDEX ORDERED
--- NOTE | 2017-06-14 18:35 | NUR ---
0715-RECIVED AWAKE AND ALERT UP IN CHAIR-KCL PER S/S STARTED K 3.4-AMBULATED TO RESTROOM WITHOUT DIFFICULTY-C/O OF SEVERE CONSTIPATION 0815-AMBULATED IN HALLWAY-PORTABLE TELEMETRY ON ROOM AIR-1000 FT WITHOUT DIFFCULTY 0930-IS IN PROGRESS-1000ML PLUS-PRODUCTIVE COUGH 1000-AMBULATING WITH PHYSICAL THERAPY OVER 1000 FT-ROOM AIR-SR MONITOR 1200-CONTINUE WITH C/O CONSTIPATION-PRUNE JUICE GIVEN 1230-VISITING WITH FAMILY IN CVICU [id number] 104-VISUAL GRANT ON IN WAITING ROOM 1630-CONTINUE C/O NAUSEA-REFUSES ZOFRAN-STATES WILL MAKE HIM WORSE CONSTIPATED
--- NOTE | 2017-06-14 19:30 | NUR ---
REPORT RECVD. CARE ASSUMED. INITIAL ASSMNT COMPLETED. SEE FLOWSHEET FOR FINDINGS. AWAKE AND AOX4. RESP UNLABORED. LUNGS CTA. OCC PROD COUGH. GOOD EFFFORT WITH INCENTIVE. ST ON THE MONITOR,. TEMP PM INTACT @ VVI 50. SENSING ONLY. PULSES PALP. TEDS AND SCDS IN USE. AFEBRILE. ABD DISTENDED. BS HYPO. PASSING FLATUS. VOIDING NO DIFF. DENIES DISCOMFORT. UP AD BLANK. RESTING IN BED. HOB UP. C/L IN REACH. CONT CURRENT POC.
--- NOTE | 2017-06-14 21:30 | NUR ---
HS MEDS GIVEN. PRN PERCOCET PROVIDED FOR PAIN CONTROL. VSS. UP AD BLANK TO BR. DENIES FURTHER NEEDS. HOB UP. C/L IN REACH. CONT CURRENT POC.
--- NOTE | 2017-06-14 23:30 | NUR ---
REASSESSMENT COMPLETED. SEE FLOWSHEET FOR ALL FINDINGS. RESTING IN BED. RESP UNLABORED. LUNGS CTA. OCC PROD COUGH. GOOD EFFFORT WITH INCENTIVE. ST ON THE MONITOR,. TEMP PM INTACT @ VVI 50. SENSING ONLY. PULSES PALP. TEDS AND SCDS IN USE. AFEBRILE. ABD DISTENDED. BS HYPO. PASSING FLATUS. VOIDING NO DIFF. DENIES DISCOMFORT. UP AD BLANK. NO NEEDS VOICED. HOB UP. C/L IN REACH. CONT CURRENT POC.
[2017-06-15] VITALS (21 sets, daily range): BP systolic 90–121; BP diastolic 62–86
--- NOTE | 2017-06-15 01:10 | NUR ---
UP TO BR ADLIB. VOIDING AND PASSING FLATUS. DENIES NEEDS. SR ON THE MONITOR. POSITIONS SEWLF IN BED. HOB UP. C./L IN REACH. CONT CURRENT POC.
--- NOTE | 2017-06-15 05:12 | NUR ---
AWAKE IN BED, REASING. DENIES NEEDS. VSS. SR ON THE MONITOR,. HOB UP. C/L IN REACH. CONT CURRENT POC.
[2017-06-15 06:33] LABS: HEMATOCRIT 28.5 % (42.0-54.0); HEMOGLOBIN 9.3 g/dL (13.5-17.5); MCH 29.8 pg (26.0-34.0); MCHC 32.6 g/dL (31.0-37.0); MCV 91.3 fL (80.0-100.0); MEAN PLATELET VOLUME 10.4 fL (7.4-10.4); RBC 3.12 10x6/uL (4.20-6.10); RDW 13.6 % (11.5-14.5); WBC 8.2 10x3/uL (4.8-10.8)
[2017-06-15 06:54] LABS: ALBUMIN 2.6 g/dL (3.4-5.0); ALKALINE PHOSPHATASE 44 U/L (46-116); ALT (SGPT) 26 U/L (10-68); BILIRUBIN - TOTAL 0.53 mg/dL (0.2-1.3); CALC OSMOLALITY 278 mosm/kg (275-300); CALCIUM 7.9 mg/dL (8.5-10.1); CARBON DIOXIDE 28.8 mmol/L (21.0-32.0); CHLORIDE - SERUM 104 mmol/L (98-107); CREATININE - SERUM 0.9 mg/dL (0.6-1.3); GLUCOSE 102 mg/dL (74-106); POTASSIUM - SERUM 4.2 mmol/L (3.5-5.1); PROTEIN - SERUM 5.8 g/dL (6.4-8.2); SODIUM 138 mmol/L (136-145); UREA NITROGEN 20 mg/dL (7-18); eGFR NON AFRICAN AMERICAN > 90 mL/min (90-120)
--- NOTE | 2017-06-15 06:59 | NUR ---
ORAL CARE DONE WITH PERIDEX
--- NOTE | 2017-06-15 09:55 | NUR ---
EASILY AWAKENED-AMBULATED TO RESTROOM -TELEMETRY IN PLACE- DR BROWN AT [facility] AND SPOKE WITH PT REGARDING DISCHARGE INSTRUCTION
--- NOTE | 2017-06-15 18:04 | NUR ---
ORAL CARE PERFORMED WITH PERIDEX ORDERED
--- NOTE | 2017-06-15 18:48 | NUR ---
1030-AWAKE AND ALERT-AMBULATING IN HALLWAY 1130-COMPLETE AM CARE DONE-DRG TO R LEG DONE 1330-AMBULATING IN HALLWAY 1500-ASSISTED TO BED -PACER WIRE DRG CHANGED 1700-PT ASLEEP 1830-AWAKE AND ALERT-AMBULATING IN PERCOCET 1 TAB PO GIVEN
--- NOTE | 2017-06-15 19:20 | NUR ---
REPORT REC'D AND CARE ASSUMED, PT SITTING UP ON SIDE OF BED WATCHING TV, ON ROOM AIR, AWAKE, ALERT, ORIENTED X 4, LDLSCL DRSG CDI BOTH PORTS SALINE LOCKED, MIDSTERNAL DRSG CDI, SUBSTERNAL DRSG TO PREVIOUS CT INSERTION SITES AND EXTERNAL P/M WIRES CDI, EXTERNAL P/M VVI 50 VMA 10, CM-SR @ 97, RIGHT LEG DRSGS CDI, PT MAEE, PPP, PT REQUESTING JELLO AND LEMON HYDABURG DIVYA, PROVIDED AT THIS TIME, BED IN LOW POSITION CALL LIGHT IN REACH.
--- NOTE | 2017-06-15 21:35 | NUR ---
EVENING MEDS GIVEN, PT RESTING IN BED WATCHING TV, NO VISITORS IN AT THIS TIME, PT DENIES FURTHER NEEDS, SR UP X 2 ,CALL LIGHT IN REACH.
--- NOTE | 2017-06-15 23:20 | NUR ---
REASSESSMENT COMPLETED, PT RESTING IN BED EYES CLOSED, RESP EVEN AND UNLABORED, VSS, VISIBLE TO NURSES STATION, P/M SENSING.
[2017-06-16] VITALS (12 sets, daily range): BP systolic 92–130; BP diastolic 54–76
--- NOTE | 2017-06-16 02:10 | NUR ---
PT UP TO BATHROOM TO VOID, ASSISTED BACK TO BED, PT COMPLAINS OF INCISIONAL DISCOMFORT, PERCOCET 10/325 GIVEN PO, PT RATING PAIN "7" ON 0-10 PAIN SCALE, DENIES FURTHER NEEDS.
--- NOTE | 2017-06-16 03:30 | NUR ---
REASSESSMENT COMPLETED, PT DENIES PAIN AT THIS TIME, VSS, NO CHANGES FROM PREVIOUS ASSESSMENT, APPLE JUICE PROVIDED REQUEST, PT DENIES FURTHER NEEDS, SR UP X 2, CALL LIGHT IN REACH.
--- NOTE | 2017-06-16 04:30 | NUR ---
PT TAKEN TO RADIOLOGY FOR PA AND LATERAL, COMPLETE BED LINEN CHANGE PROVIDED, PT WISHES TO RETURN TO BED TO FINISH READING BOOK, BED IN LOW POSITION, CALL LIGHT IN REACH.
--- NOTE | 2017-06-16 06:00 | NUR ---
PT RESTING IN BED EYES CLOSED, RESP EVEN AND UNLABORED, NO VISITORS IN AT THIS TIME
--- NOTE | 2017-06-16 07:00 | NUR ---
ORAL CARE DONE POST TX
--- NOTE | 2017-06-16 07:15 | NUR ---
RECEIVED PT FOR CARE. PT SITTING UP IN CHAIR. CALL LIGHT WITHIN REACH. ASSESSMENT COMPLETED. VSS AT THIS TIME.
[2017-06-16] MEDS ORDERED: LOPRESSOR25 MG PO (08:04)
[2017-06-16] MEDS ORDERED: HEMOCYTE PLUS C1 CAP PO (08:04)
[2017-06-16] MEDS ORDERED: K-DUR20 MEQ PO (08:05)
[2017-06-16] MEDS ORDERED: PERCOCET 10/3251 TA1 PO (08:08)
--- NOTE | 2017-06-16 09:02 | TEE ---
PATIENT:MARIS BRIDGES MEDICAL RECORD: [id number] LOCATION:[place] [address] AGE OF PATIENT: 61 ADMISSION DATE: 06/10/17 SEX: M REFERRING PHYSICIAN: INTERPRETING PHYSICIAN: CESAR MIRANDA MD TRANSESOPHAGEAL ECHOCARDIOGRAM SEA CHARGE Y INDICATIONS: CABG PREMEDICATIONS: PATIENT'S RESPONSE PROCEDURE DOPPLER MEASUREMENTS: LVIT LA PA RA LVOT RVOT Asc. Ao AV Gradient Peak AV Mean AV Area MV Gradient Peak MV Mean MV Area INTERPRETATION: Doppler: 2-D: EF 55% COLOR FLOW DOPPLER TRACE MR NORMAL SALINE STUDY: MISCELLANOUS: DIAGNOSIS: PLAN: Medical Corps Officer:2 Dr. Aviles Piano Regulator Inspector: Kayley IVEY COMMENTS: STEPHANIE PATIENT DATE OF SERVICE: 06/10/2017 Transesophageal echo evaluation of valvular structures during bypass surgery. FINDINGS: 1. Left ventricular chamber size is within normal limits. Left ventricular systolic function is normal. Overall ejection fraction estimated at 55% to 60%. 2. Left atrium, right atrium, and right ventricular chamber size are within normal limits. TRANSESOPHAGEAL ECHOCARDIOGRAM REPORT [id number] MARIS BRIDGES 3. Valvular structures have normal structure and motion. 4. Doppler interrogation only reveals trace mitral regurgitation. No other valvular insufficiency or stenosis. 5. No evidence of pericardial effusion or left ventricular thrombus. TRANSINT:[id number] Voice Confirmation ID: [id number] DOCUMENT ID: [id number] at 0902 CC: [id number] DICTATION DATE: 06/11/17 1117 CUFF KNITTER: 06/11/17 1146 [place] [id number]
--- NOTE | 2017-06-16 10:06 | NUR ---
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 Met with patient. No needs identified or verbalized at this time. Motor Overhauler: Latasha Jimenez
--- NOTE | 2017-06-16 13:54 | NUR ---
PT SITTING UP IN CHAIR. CALL LIGHT WITHIN REACH. VSS AT THIS TIME. NO S/S OF DISTRESS NOTED.
--- NOTE | 2017-06-16 14:20 | NUR ---
BRITTANY WOODS RN AT BEDSIDE. TPM WIRES D/C'D. PT TOLERATED WELL. ALL INCISIONS OPEN TO AIR. NO S/S OF INFECTION NOTED. LEFT DLSC D/C'D WITH CATH TIP INTACT. PT TOLERATED WELL.
--- NOTE | 2017-06-16 15:00 | NUR ---
PT TAKEN OUT BY WHEELCHAIR. HAS ALL DISCHARGE PAPERWORK IN HAND. NO S/S OF DISTRESS NOTED.
== END 2017-06-16 15:00 | disposition home or self-care (01) | DRG 236 ==
LOC: D.CVICU 04:50 → D.SDCHOLD 04:50 → D.CVICU 10:01
PROVIDERS: ADMIT Internal Medicine Cardiovascular Disease
PROC: 021209W Bypass Coronary Artery, Three Arteries from Aorta with Autologous Venous Tissue, Open Approach (ICD-10-PCS; 2017-06-10)
PROC: 06BP0ZZ Excision of Right Saphenous Vein, Open Approach (ICD-10-PCS; 2017-06-10)
PROC: 5A1221Z Performance of Cardiac Output, Continuous (ICD-10-PCS; 2017-06-10)
PROC: B245ZZ4 Ultrasonography of Left Heart, Transesophageal (ICD-10-PCS; 2017-06-10)
PROC: 02100AC Bypass Coronary Artery, One Artery from Thoracic Artery with Autologous Arterial Tissue, Open Approach (ICD-10-PCS; principal; 2017-06-10 07:30)
DX: I25.119 Atherosclerotic heart disease of native coronary artery with unspecified angina pectoris (principal); I10 Essential (primary) hypertension; E78.5 Hyperlipidemia, unspecified; R06.6 Hiccough

== ENCOUNTER → 2017-07-03 09:59 | Outpatient (CLI) | payer OTHER ==
[2017-06-11 10:32] VITALS: BMI 27.3
[~2017-07-03 09:59] MED LIST changes: +HEMOCYTE PLUS C1 CAP PO; +K-DUR20 MEQ PO; +LOPRESSOR25 MG PO; +PERCOCET 10/3251 TA1 PO
[2017-07-03 10:30] LABS: HEMATOCRIT 37.9 % (42.0-54.0); HEMOGLOBIN 11.9 g/dL (13.5-17.5); MCH 27.7 pg (26.0-34.0); MCHC 31.4 g/dL (31.0-37.0); MCV 88.3 fL (80.0-100.0); MEAN PLATELET VOLUME 10.3 fL (7.4-10.4); RBC 4.29 10x6/uL (4.20-6.10); RDW 13.7 % (11.5-14.5); WBC 9.5 10x3/uL (4.8-10.8)
[2017-07-03 10:57] LABS: ALBUMIN 3.4 g/dL (3.4-5.0); ANION GAP 12.8 mmol/L (8-16); BILIRUBIN - TOTAL 0.4 mg/dL (0.2-1.3); CALCIUM 8.9 mg/dL (8.5-10.1); CARBON DIOXIDE 27.4 mmol/L (21.0-32.0); CREATININE - SERUM 1.2 mg/dL (0.6-1.3); POTASSIUM - SERUM 4.2 mmol/L (3.5-5.1); PROTEIN - SERUM 7.8 g/dL (6.4-8.2)
== END | disposition home or self-care (01) ==
LOC: D.LAB 09:59
PROVIDERS: Internal Medicine Cardiovascular Disease
DX: J91.8 Pleural effusion in other conditions classified elsewhere (principal); D64.9 Anemia, unspecified